=== PATIENT | male | born 1970 | race Caucasian/White ===

== ENCOUNTER → 2024-09-21 11:53 | Outpatient (CLI) | payer OTHER, SELFPAY ==
--- NOTE | 2024-09-21 11:55 | DI.RAD.S_ITS ---
PROCEDURE: XR CHEST 2V INDICATIONS: exertional fatigue TECHNIQUE: 2 views of the chest were acquired. COMPARISON: None. FINDINGS: Heart, mediastinum and pulmonary vascular: Heart is normal in size and configuration. Mediastinum is unremarkable. Pulmonary vascular is normal. Lungs: Clear Pleural spaces: Normal-no effusions or pneumothorax. Bones and soft tissues: Normal IMPRESSION: Normal chest. Dictated by: Pako Delvalle M.D. on 09/22/2024 at 9:26 Approved by: Pako Delvalle M.D. on 09/22/2024 at 9:27
[2024-09-21 12:57] LABS: Add Manual Diff / Slide Review NO; Basophils Absolute Auto 100 /uL (0-100); Basophils Percent Auto 0.5 % (0-2); Eosinophils Absolute Auto 200 /uL (0-450); Eosinophils Percent Auto 1.8 % (2-4); Hematocrit 46.4 % (41-53); Hemoglobin 15.7 g/dL (13.5-17.5); Lymphocytes Absolute Auto 3700 /uL (1100-4500); Lymphocytes Percent Auto 32.9 % (25-40); Mean Corpuscular HGB Conc 33.9 % (30-36); Mean Corpuscular Hemoglobin 30.2 PG (26-34); Mean Corpuscular Volume 89.1 fL (80-100); Monocytes Absolute Auto 900 /uL (0-900); Neutrophils Absolute Auto 6400 /uL (1500-7000); Neutrophils Percent Auto 56.8 % (50-75); Platelet Count 301 X10^3/uL (150-400); Red Cell Distribution Width 13.5 % (11.6-14.8); White Blood Cell Count 11.3 X10^3/uL (4.5-11.0)
[2024-09-21 13:20] LABS: Alanine Aminotransferase 18 IU/L (<50); Albumin 4.4 g/dL (3.5-5.0); Albumin Globulin Ratio 1.4 (1.0-2.8); Alkaline Phosphatase 73 U/L (38-126); Aspartate Aminotransferase 21 IU/L (17-59); BUN Creatinine Ratio 13.5 (6-22); Bilirubin Total 0.9 mg/dL (0.2-1.3); Blood Urea Nitrogen 14 mg/dL (9-20); Calcium 9.2 mg/dL (8.4-10.2); Carbon Dioxide 24 mmol/L (22-32); Chloride 102 mmol/L (98-107); Cholesterol 273 mg/dL (140-199); Estimated Glomerular Filt Rate > 60 mL/min (>60); Globulin 3.2 g/dL (1.7-4.1); Glucose 129 mg/dL (70-100); HDL Cholesterol 43 mg/dL (40-60); HEMOLYSIS < 15 (0-50); LDL Cholesterol Calculated 179 mg/dL (<100); Potassium 4.1 mmol/L (3.4-5.1); Sodium 137 mmol/L (137-145); Total Protein 7.6 g/dL (6.3-8.2); Triglycerides 253 mg/dL (35-150)
[2024-09-21 13:51] LABS: TSH w/ Reflex to FT4 1.84 uIU/mL (0.47-4.68)
== END ==
PROVIDERS: PCP Family Medicine; Referring Provider Family Medicine; Visit Provider Family Medicine
DX: Z00.00 Encounter for general adult medical examination without abnormal findings (principal); I10 Essential (primary) hypertension; R53.83 Other fatigue; Z83.3 Family history of diabetes mellitus
CPT/HCPCS: 36415; 71046; 80053; 80061; 83036; 84153; 84443; 85025

== ENCOUNTER → 2024-10-13 07:37 | Outpatient (CLI) | payer OTHER, SELFPAY ==
--- NOTE | 2024-10-13 07:41 | DI.NM.S_ITS ---
PROCEDURE: NM EXERCISE TREADMILL NON NUC COMPARISON: None INDICATIONS: Exertional fatigue FINDINGS: Rest ECG sinus rhythm 94 bpm, occasional PVCs. Frank protocol 2:37, maximum heart rate 154 bpm (93% peak predicted), maximum blood pressure 152/86, 3.7 METS, GOOD +65%. Oxygen saturation 95 to 96%. Exercise ECG sinus tachycardia, no ST segment changes. Recovery ECG sinus tachycardia to sinus rhythm, 2 mm horizontal to downsloping ST segment depressions leads II, III, aVF, V4-V6. The patient did not complain of exercise-induced chest pain. IMPRESSION: Abnormal study. Ischemic ECG changes noted on ECG in recovery. Accelerated heart rate response. Normal blood pressure response. No significant exercise-induced hypoxemia. Markedly reduced exercise capacity. Test results discussed with office of the ordering provider. Dictated by: Nancy Hayes D.O. on 10/13/2024 at 16:39 Approved by: Nancy Hayes D.O. on 10/13/2024 at 16:43
== END ==
LOC: NUCM 07:39
PROVIDERS: PCP Family Medicine; Referring Provider Family Medicine; Visit Provider Family Medicine
DX: R94.39 Abnormal result of other cardiovascular function study (principal); R53.83 Other fatigue
CPT/HCPCS: 93017

== ENCOUNTER → 2024-10-20 08:04 | Outpatient (CLI) | payer OTHER, SELFPAY ==
--- NOTE | 2024-10-20 08:04 | DI.ECHO.S_ITS ---
[facility] : : [address] : : [place] : : [id number] : : Phone: [phone] Echocardiogram Report + + :Name: ALIZA TONEY Study Date: 10/20/2024 Height: 72 in : :[facility] ReadingLocation: Weight: 330 lb : : Gender: Male BSA: 2.6 m2 : :: 1970 Age: 54 yrs BP: 148/103 mmHg: :Reason For Study: EXERTIONAL FATIGUE : :Ordering Physician: RAFFI, : :NEO Performed By: Cher Zamora : :Referring: NEO NUGENT : + + Interpretation Summary The left ventricle is mild-moderately dilated. Left ventricular systolic function is severely reduced. The ejection fraction is estimated to be 25-30%. Diastolic parameters suggest a restrictive filling pattern consistent with probable significantly elevated filling pressures. The right ventricle is mildly dilated. Right ventricular systolic function is at the lower limits of normal. Pulmonary artery pressures cannot be estimated because of the lack of a measurable TR jet velocity. The left atrium is mildly dilated. There is no significant valvular heart disease. The ascending aorta is mildly enlarged. Procedure: A two-dimensional transthoracic echocardiogram with color flow and Doppler was performed. The study quality was technically adequate. A contrast injection of Definity was performed to improve assessment of LV function. There is no prior echocardiogram noted for this patient. The patient was in sinus rhythm with heart rates between 84-90 bpm during the exam. Left Ventricle: The left ventricle is mild-moderately dilated. Left ventricular wall thickness is mildly increased. Left ventricular systolic function is severely reduced. The ejection fraction is estimated to be 25-30%. There is moderate to severe global hypokinesis of the left ventricle. Diastolic parameters suggest a restrictive filling pattern consistent with probable significantly elevated filling pressures. Right Ventricle: The right ventricle is mildly dilated. Right ventricular systolic function is at the lower limits of normal. Atria: The left atrium is mildly dilated. Right atrial size is normal. There is no Doppler evidence for an interatrial shunt. Mitral Valve: The mitral valve is normal in structure and function. There is trace mitral regurgitation. Aortic Valve: The aortic valve is trileaflet. The aortic valve opens well. There is no aortic valve stenosis. No aortic regurgitation is present. Tricuspid Valve: The tricuspid valve is normal in structure and function. There is a trace or physiologic amount of tricuspid regurgitation. Pulmonary artery pressures cannot be estimated because of the lack of a measurable TR jet velocity. Pulmonic Valve: The pulmonic valve leaflets are thin and pliable; valve motion is normal. There is mild pulmonic regurgitation. There is no significant valvular heart disease. Great Vessels: The aortic root is normal size. The ascending aorta is mildly enlarged. The IVC is of normal diameter and collapses greater than 50% with a sniff. This suggests a low right atrial pressure of 3 mm Hg. Pericardium/ Pleura There is no pericardial effusion. There is no pleural effusion. MMode/2D Measurements & Calculations LVIDd: 6.2 cm LVOT diam: 2.4 cm LVIDs: 5.2 cm Ao root diam: 3.1 cm FS: 15.9 % asc Aorta Diam: 3.7 cm EPSS: 1.6 cm Ao Arch Diam (Prox Trans): 3.6 cm IVSd: 1.2 cm LVPWd: 0.84 cm LV ball. diameter/BSA (cm/m^2): 2.4 LV sys. diameter/BSA (cm/m^2): 2.0 LA A2 area: 26.2 cm2 RA long axis: 5.1 cm LA A4 area: 26.1 cm2 RA area: 20.9 cm2 LA length (vol): 6.0 cm RA vol: 73.2 ml LA vol: 96.4 ml RA : 27.8 ml/m2 LA vol index: 36.6 ml/m2 IVC diam: 1.4 cm RVD1 (basal): 4.1 cm TAPSE: 1.9 cm Doppler Measurements & Calculations Ao V2 max: 94.0 cm/sec LVOT Max Abdelrahman: 71.2 cm/sec Ao V2 mean: 69.6 cm/sec LV V1 max P.0 mmHg Ao max P.5 mmHg LV V1 VTI: 13.2 cm Ao mean P.1 mmHg RADHA(I,D): 3.4 cm2 Ao V2 VTI: 17.8 cm RADHA(V,D): 3.4 cm2 sev ratio: 0.74 RADHA indexed to BSA (cm^2/m^2): 1.3 MV E max abdelrahman: 105.7 cm/sec PA V2 max: 101.0 cm/sec MV A max abdelrahman: 18.9 cm/sec PA V2 mean: 62.6 cm/sec MV E/A: 5.6 PA mean P.8 mmHg Med Peak E' Abdelrahman: 7.9 cm/sec PA pr(Accel): 44.7 mmHg E/E' med: 13.3 Lat Peak E' Abdelrahman: 6.6 cm/sec E/E' lat: 16.0 E/e' average: 14.6 MV dec time: 0.15 sec SV(LVOT): 59.8 ml Reading Physician:10:14 AM
== END ==
PROVIDERS: PCP Family Medicine; Referring Provider Family Medicine; Visit Provider Family Medicine
DX: I37.1 Nonrheumatic pulmonary valve insufficiency (principal); I77.89 Other specified disorders of arteries and arterioles; R53.83 Other fatigue; T73.3XXA Exhaustion due to excessive exertion, initial encounter
CPT/HCPCS: 93306

== ENCOUNTER → 2025-10-22 10:07 | Outpatient (CLI) | payer OTHER, SELFPAY ==
[2025-10-22 11:00] LABS: Add Manual Diff / Slide Review NO; Hematocrit 44.3 % (41-53); Hemoglobin 15.1 g/dL (13.5-17.5); Lymphocytes Absolute Auto 3100 /uL (1100-4500); Mean Corpuscular HGB Conc 34.1 % (30-36); Mean Corpuscular Hemoglobin 30.6 PG (26-34); Mean Corpuscular Volume 89.7 fL (80-100); Platelet Count 286 X10^3/uL (150-400)
[2025-10-22 11:10] LABS: Hemoglobin A1C% w Est Avg Glu 5.9 % (4.0-6.0)
[2025-10-22 11:19] LABS: Alanine Aminotransferase 18 IU/L (<50); Albumin 4.6 g/dL (3.5-5.0); Albumin Globulin Ratio 1.5 (1.0-2.8); Alkaline Phosphatase 77 U/L (38-126); Blood Urea Nitrogen 13 mg/dL (9-20); Calcium 9.7 mg/dL (8.4-10.2); Carbon Dioxide 30 mmol/L (22-32); Chloride 101 mmol/L (98-107); Cholesterol 202 mg/dL (140-199); Estimated Glomerular Filt Rate > 60 mL/min (>60); Globulin 3.1 g/dL (1.7-4.1); Glucose 134 mg/dL (70-99); HDL Cholesterol 47 mg/dL (40-60); HEMOLYSIS < 15 (0-50); Potassium 4.7 mmol/L (3.4-5.1); Sodium 139 mmol/L (137-145); Total Protein 7.7 g/dL (6.3-8.2); Triglycerides 236 mg/dL (35-150); Uric Acid 6.7 mg/dL (3.5-8.5)
[2025-10-22 11:27] LABS: NT-proBNP (BNP-Adult 18+) 52 pg/mL (<125)
[2025-10-22 12:11] LABS: TSH w/ Reflex to FT4 1.60 uIU/mL (0.47-4.68)
== END ==
PROVIDERS: PCP Family Medicine; Referring Provider Family Medicine; Visit Provider Family Medicine
DX: Z03.89 Encounter for observation for other suspected diseases and conditions ruled out (principal); I11.0 Hypertensive heart disease with heart failure; I50.42 Chronic combined systolic (congestive) and diastolic (congestive) heart failure; E78.00 Pure hypercholesterolemia, unspecified; E66.01 Morbid (severe) obesity due to excess calories; Z95.5 Presence of coronary angioplasty implant and graft; Z83.3 Family history of diabetes mellitus; Z68.42 Body mass index [BMI] 45.0-49.9, adult
CPT/HCPCS: 36415; 80053; 80061; 83036; 83880; 84443; 84550; 85025